=== PATIENT | female | born 2000 | race Caucasian/White ===

== ENCOUNTER 2020-06-24 18:34 | Emergency (ER) | payer SELFPAY ==
--- NOTE | ~2020-06-24 | XR_ITS ---
EXAMINATION: XR chest 2V DATE: 06/24/2020 20:07 INDICATION: Chest pain with inspiration TECHNIQUE: PA and lateral views of the chest are obtained. COMPARISON: None available FINDINGS: The lungs are free of acute opacities. There is no pleural effusion or pneumothorax. The ca rdiomediastinal silhouette is normal. The visualized bones and soft tissues are unremarkable. IMPRESSION: 1. No acute cardiopulmonary abnormality. Reviewed, dictated and finalized at location A. [facility]PER[facility]
[2020-06-24 18:45] VITALS: BP 131/61; PULSE 91; RESP 18; TEMP 36.3; O2SAT 100
[2020-06-24 19:14] VITALS: BP 119/85; PULSE 85; RESP 14; TEMP 37.1; O2SAT 100
[2020-06-24] MEDS: KETOROLAC 30 MG/ML VIAL (*BKC) IV PUSH (19:52)
[2020-06-24] MEDS: FAMOTIDINE 20 MG/2 ML VIAL IV PUSH (19:52)
[2020-06-24] MEDS: SODIUM CHLORIDE 0.9% IV 1,000 ML 999 ML IV CONT (19:52)
[2020-06-24 20:02] LABS: Basophils Percent Auto 0.2 % (0.2-1.2); Eosinophils Absolute Auto 0.1 K/mm3 (0-0.3); Eosinophils Percent Auto 1.5 % (0-4.4); Hematocrit 32.7 % (37.0-47.0); Hemoglobin 10.1 g/dL (12.0-15.0); Immature Granulocyte Absolute 0.02 K/mm3 (0.00-0.031); Immature Granulocyte Percent A 0.2 % (0-0.5); Lymphocytes Absolute Auto 2.01 K/mm3 (0.9-3.2); Lymphocytes Percent Auto 21.9 % (18.3-44.2); Mean Corpuscular HGB Conc 30.9 g/dl (32-36); Mean Corpuscular Hemoglobin 23.2 pg (26-34); Mean Corpuscular Volume 75.2 fl (80-100); Mean Platelet Volume 10.4 fl (7.4-10.4); Monocytes Absolute Auto 0.5 K/mm3 (0.1-0.6); Monocytes Percent Auto 5.2 % (2.6-8.5); Neutrophils Absolute Auto 6.5 K/mm3 (1.3-6.7); Platelet Count Result 315 k/mm3 (150-375); Red Blood Count 4.35 M/mm3 (4.2-5.4); Red Cell Distribution Width 16.7 % (11.5-14.5); White Blood Count 9.2 K/mm3 (4.5-10.0)
[2020-06-24 20:07] LABS: Add Urine Microscopic? YES; Appearance Urine Clear (Clear); Bilirubin Urine Negative (Negative); Blood Urine Negative (Negative); Color Urine Straw (Yellow); Glucose Urine UA Negative (Negative); Ketones Urine Negative (Negative); Leukocyte Esterase Ur 1+ LEU/UL (Negative); Mucus Urine Rare /lpf; Nitrate Urine Negative (Negative); Protein Urine Negative (Negative); RBC Urine 0-2 /hpf (0-2); Specific Grav Ur 1.018 (1.001-1.035); Squamous Epithelial Cell Urine Many /hpf (Few); Urobilinogen Urine Negative mg/dL (<2.0)
--- NOTE | 2020-06-24 20:09 | ED.GENADULT ---
HPI - General Adult General Chief complaint: Shortness of Breath/Dyspnea Stated complaint: sob Time Seen by Provider: 06/24/20 19:14 Source: patient Mode of arrival: ambulatory Limitations: no limitations History of Present Illness HPI narrative: Patient is a 20-year-old female who presents with left-sided abdominal pain for the last day patient notes aching pain that is worse with activity movement and deep breathing notes that she just was finishing her period when this onset had patient has not taken anything for her symptoms patient denies any fever chills nausea vomiting diarrhea vaginal bleeding discharge or urinary symptoms Related Data Allergies Allergy/AdvReac Type Severity Reaction Status Date / Time No Known Allergies Allergy Verified 06/24/20 19:16 Review of Systems Review of Systems: All systems reviewed & are unremarkable except as noted in HPI and below PMFSH Social History Social History (Updated 06/24/20 @ 20:10 by Mark Henrandez PA-C) Smoking status: Never smoker Gender identity (if verbalized by the patient): Female Exam Narrative: Exam Narrative: GENERAL: Well-appearing, well-nourished, and in no acute distress. HEAD: Normocephalic, atraumatic. EYES: PERRLA and EOMI. ENT: Nares clear, no rhinorrhea or epistaxis. Mucous membranes moist. CHEST: Clear to auscultation. No respiratory distress. No wheezes rales or rhonchi HEART: Regular rate and rhythm. No murmur heard. Normal peripheral pulses. ABDOMEN: Soft, right-sided abdominal tenderness in the upper quadrant remainder of abdomen nontender, nondistended EXTREMITIES: Normal range of motion. No edema. SKIN: Warm, dry, no rash. NEURO: No focal deficits. Alert and oriented x3. PSYCH: Normal mood and affect. Course Course Emergency Course: Patient in the room in no distress resting comfortably no high risk changes in the blood work or imaging will be sent home with medications with outpatient reevaluation provided with reasons to return felt appropriate for outpatient treatment given the presentation and symptoms afebrile nontoxic-appearing no distress Vital Signs Vital signs: Vital Signs Temperature 97.3 F L 06/24/20 18:45 Pulse Rate 91 06/24/20 18:45 Respiratory Rate 18 06/24/20 18:45 Blood Pressure 131/61 06/24/20 18:45 Pulse Oximetry 100 06/24/20 18:45 Temperature 98.8 F 06/24/20 19:14 Pulse Rate 85 06/24/20 19:14 Respiratory Rate 14 06/24/20 19:14 Blood Pressure 119/85 06/24/20 19:14 Pulse Oximetry 100 06/24/20 19:14 Medical Decision Making MDM Narrative Medical decision making narrative: Patient in the room in no distress aware of case findings treatment plan diagnosis agreeing to follow-up as directed also given reasons to return no high risk changes in the blood work or imaging Vital Signs Vital Signs: Vital Signs Temperature 97.3 F L 06/24/20 18:45 Pulse Rate 91 06/24/20 18:45 Respiratory Rate 18 06/24/20 18:45 Blood Pressure 131/61 06/24/20 18:45 Pulse Oximetry 100 06/24/20 18:45 Temperature 98.8 F 06/24/20 19:14 Pulse Rate 85 06/24/20 19:14 Respiratory Rate 14 06/24/20 19:14 Blood Pressure 119/85 06/24/20 19:14 Pulse Oximetry 100 06/24/20 19:14 Lab Data Result diagrams: 06/24/20 19:48 06/24/20 19:49 Labs: Lab Results 06/24/20 06/24/20 06/24/20 Range/Units 19:48 19:48 19:49 WBC 9.2 (4.5-10.0) K/mm3 RBC 4.35 (4.2-5.4) M/mm3 Hgb 10.1 L (12.0-15.0) g/dL Hct 32.7 L (37.0-47.0) % MCV 75.2 L (80-100) fl MCH 23.2 L (26-34) pg MCHC 30.9 L (32-36) g/dl RDW 16.7 H (11.5-14.5) % Plt Count 315 (150-375) k/mm3 MPV 10.4 (7.4-10.4) fl Immature Gran % (Auto) 0.2 (0-0.5) % Neut % (Auto) 71.0 (45.5-73.1) % Lymph % (Auto) 21.9 (18.3-44.2) % Emmet % (Auto) 5.2 (2.6-8.5) % Eos % (Auto) 1.5 (0-4.4) % Baso % (Auto) 0.2 (0.2-1.2) % Lymph # (Auto) 2.0
[2020-06-24 20:13] LABS: Alanine Aminotransferase 9 U/L (4-35); Albumin Level 3.9 g/dL (3.5-5.1); Alkaline Phosphatase 76 U/L (38-126); Anion Gap 8 mmol/L (8-16); Aspartate Amino Transferase 21 U/L (14-36); Bilirubin,Total 0.3 mg/dL (0.2-1.3); Blood Urea Nitrogen 14 mg/dL (7-17); Calcium 9.4 mg/dL (8.4-10.2); Carbon Dioxide 28 mmol/L (22-30); Chloride 102 mmol/L (98-107); Estimated CRCL calculation 80 ml/min; Estimated Glomerular Filt Rate > 60; Glucose 90 mg/dL (65-105); Lipase 68 U/L (23-300); Sodium 138 mmol/L (137-145)
[2020-06-24] MEDS: MAG HYDROX/AL HYDROX/SIMETH 30 ML UDC PO (20:49)
[2020-06-24] MEDS: LIDOCAINE HCL 2% VISC SOLN 15 ML UDC 20 ML PO (20:49)
[2020-06-24 20:59] VITALS: BP 121/74; PULSE 88; RESP 17; O2SAT 97
--- NOTE | 2020-07-01 07:14 | PC.NURSE ---
LATE ENTRY This note is being entered to document information to the patient's record. The following information was omitted on [07/01/20], by [ALIYAH Messer. Ns infused [id number]].
== END 2020-06-24 20:59 | disposition home or self-care (01) ==
PROVIDERS: Emergency Medicine Emergency Medical Services; Emergency Provider Emergency Medicine
DX: R10.9 Unspecified abdominal pain (principal)
CPT/HCPCS: 36415; 71046; 80053; 81001; 81025; 83690; 85025; 96374; 96375; 99284; A9270; J0131; J1885; J7030

== ENCOUNTER 2021-01-06 01:36 | Emergency (ER) | payer MEDICAID, SELFPAY ==
[2021-01-06 01:37] VITALS: BP 113/78; PULSE 90; RESP 14; TEMP 37.1; O2SAT 99
--- NOTE | 2021-01-06 01:57 | ED.EAR ---
HPI - Ear Problem General Chief complaint: Ear Stated complaint: Bilat. Ear pain Time Seen by Provider: 01/06/21 01:48 Source: RN notes reviewed History of Present Illness HPI Narrative: Patient presents to emergency department from home for ear pain. Patient states the pain initially began today in her right ear states that the pain is progressively moved to both of her ear she states it feels like there is fluid behind both of her ears she states that she has had no fevers or chills. Denies headache rhinorrhea sore throat or any other symptoms states she is taken no medication for the symptoms denies any recent swimming or airline flights Related Data Allergies Allergy/AdvReac Type Severity Reaction Status Date / Time No Known Allergies Allergy Verified 06/24/20 19:16 Review of Systems Review of Systems: Narrative: Gen.: Denies fevers or chills Eyes: Denies eye pain or visual change ENT: See HPI Respiratory: Denies shortness of breath GI: Denies abdominal pain nausea, emesis denies chance of Musculoskeletal: Denies neck pain Neuro: Denies headache Skin: Denies rash Except as documented, all other systems reviewed and negative [facility] Past Medical History Medical History (Updated 01/06/21 @ 01:59 by Aravind Martin DO) Patient denies significant medical history Social History Social History (Updated 06/24/20 @ 20:10 by Mark Hernandez PA-C) Smoking status: Never smoker Gender identity (if verbalized by the patient): Female Exam Narrative: Exam Narrative: APPEARANCE: No acute distress, nontoxic, resting in bed EYES: EOMI HEENT: Normocephalic, atraumatic, the right TM is erythematous with a effusion seen the external canal is normal in appearance, the left TM is diffusely erythematous with minimal effusion seen nares patent or mucosa moist erythema exudate posterior pharynx RESPIRATORY: No respiratory distress Clear to auscultation bilaterally with no rhonchi wheezing or rales. CARDIOVASCULAR: Regular rate and rhythm without murmurs rubs or gallops. ABDOMINAL: Soft, nontender, nondistended, MUSCULOSKELETAl: Moves all extremities. NEURO: Awake and alert. Following commands, speech normal, no focal deficits SKIN:: Warm, dry. No rashes lesions or abrasions PSYCHIATRIC: Normal affect/mood, Course Course Emergency Course: Discussed with patient results of workup and diagnosis. Discussed need for follow-up with primary care, proper use of medication, and reasons to return to the emergency department. Patient understands and agrees to current treatment plan Vital Signs Vital signs: Vital Signs Temperature 98.7 F 01/06/21 01:37 Pulse Rate 90 01/06/21 01:37 Respiratory Rate 14 01/06/21 01:37 Blood Pressure 113/78 01/06/21 01:37 Pulse Oximetry 99 01/06/21 01:37 Temperature 97.0 F L 01/06/21 01:59 Pulse Rate 85 01/06/21 01:59 Respiratory Rate 16 01/06/21 01:59 Blood Pressure 116/77 01/06/21 01:59 Pulse Oximetry 98 01/06/21 01:59 Medical Decision Making Vital Signs Vital Signs: Vital Signs Temperature 98.7 F 01/06/21 01:37 Pulse Rate 90 01/06/21 01:37 Respiratory Rate 14 01/06/21 01:37 Blood Pressure 113/78 01/06/21 01:37 Pulse Oximetry 99 01/06/21 01:37 Temperature 97.0 F L 01/06/21 01:59 Pulse Rate 85 01/06/21 01:59 Respiratory Rate 16 01/06/21 01:59 Blood Pressure 116/77 01/06/21 01:59 Pulse Oximetry 98 01/06/21 01:59 Discharge Plan Discharge Clinical Impression: Acute right otitis media, Acute left otitis media Patient Disposition: Home, Self-Care Condition: Stable Instructions: Antibiotic Form, Ear Infection (GEN) Additional Instructions: Return for increasing pain fever vomiting or any other symptoms of concern Prescriptions: New ibuprofen [IBU] 600 mg tablet 600 mg PO Q6H PRN (Reason: pain) Qty: 20 RF: 0 loratadine 10 mg tablet 10 mg PO DAILY Qty: 7 RF: 0 amoxicillin-pot
[2021-01-06 01:59] VITALS: BP 116/77; PULSE 85; RESP 16; TEMP 36.1; O2SAT 98
[2021-01-06 02:17] VITALS: BP 116/76; PULSE 92; RESP 16; TEMP 36.8; O2SAT 99
[2021-01-06] MEDS: IBUPROFEN 600 MG TABLET PO (02:25)
[2021-01-06] MEDS: AMOXICILLIN/CLAVULANATE K 875-125 MG TAB 1 TABLET PO (02:25)
== END 2021-01-06 02:25 | disposition home or self-care (01) ==
LOC: ANHED 02:07
PROVIDERS: Emergency Provider Emergency Medicine
DX: H66.93 Otitis media, unspecified, bilateral (principal)
CPT/HCPCS: 99283; A9270